=== PATIENT | female | born 2005 | race Caucasian/White ===

== ENCOUNTER 2024-03-18 08:31 | Outpatient (CLI) | payer MEDICAID, OTHER | END 2024-03-18 23:59 | disposition home or self-care (01) | LOC: MRI02 08:31 | PROVIDERS: ATTEND Family Medicine Sports Medicine | DX: S93.311A Subluxation of tarsal joint of right foot, initial encounter (principal); M79.671 Pain in right foot; X58.XXXA Exposure to other specified factors, initial encounter; Y93.89 Activity, other specified; Y92.89 Other specified places as the place of occurrence of the external cause; Y99.8 Other external cause status | CPT/HCPCS: 73718 ==